=== PATIENT | female | born 1985 | race Caucasian/White ===

== ENCOUNTER 2020-10-24 14:20 | Emergency (ER) | payer OTHER ==
[2020-10-24] MEDS ORDERED: BACTRIM DS TAB1 EACH PO (16:15)
== END 2020-10-24 17:01 | disposition home or self-care (01) ==
LOC: FER 14:20
DX: S81.801A Unspecified open wound, right lower leg, initial encounter (principal); X58.XXXA Exposure to other specified factors, initial encounter
CPT/HCPCS: 99282

== ENCOUNTER 2020-11-05 13:42 | Emergency (ER) | payer OTHER ==
[~2020-11-05 13:42] MED LIST: BACTRIM DS TAB1 EACH PO
[2020-11-05 16:04] LABS: BASOPHIL 0.5 % (0-2); EOSINOPHIL 1.1 % (0-5); HCT 42.7 % (37.0-47.0); HGB 14.1 g/dl (12.5-16.0); LYMPHOCYTE 24.2 % (15-48); MCH 29.6 pg (25.0-31.0); MCV 89.7 fL (78.0-100.0); MONOCYTE 8.4 % (0-12); MPV 9.8 fL (6.0-9.5); NEUTROPHIL 65.5 % (41-80); NRBC 0; PLT 385 K/uL (150-400); RBC 4.76 M/uL (4.20-5.40); RDW 12.8 % (11.5-14.0); WBC 12.1 K/uL (4.0-10.5)
[2020-11-05 16:21] LABS: ALBUMIN 3.7 g/dL (3.4-5.0); BILIRUBIN - TOTAL 0.3 mg/dL (0.2-1.0); BUN/CREAT RATIO (CALC) 11.8 RATIO; CREATININE 0.85 mg/dL (0.51-0.95); GLOBULIN (CALCULATION) 4.1 g/dL; TOTAL PROTEIN 7.8 g/dL (6.4-8.2)
[2020-11-05 16:24] LABS: LACTIC ACID 0.7 mmol/L (0.4-1.9)
[2020-11-05] MEDS ORDERED: AUGMENTIN 875-1 EACH PO (17:18)
== END 2020-11-05 17:48 | disposition home or self-care (01) ==
LOC: FER 13:42
PROVIDERS: Emergency Medicine
DX: L01.00 Impetigo, unspecified (principal); F17.210 Nicotine dependence, cigarettes, uncomplicated
CPT/HCPCS: 36415; 80053; 83605; 85025; 87040; 99283